=== PATIENT | female | born 1950 | race African-American/Black ===

== ENCOUNTER → 2020-10-16 | Outpatient (CLI) | payer MEDICARE, BC ==
[2014-10-02 10:38] VITALS: BP 158/94
[~2020-10-16] MED LIST: CETI10TA74 PO; METF500T16 PO; RAMI10CA53 PO; SIMV10TA PO
--- NOTE | 2020-10-18 10:10 | RAD ---
EXAM: Bilateral digital screening mammogram with tomosynthesis. HISTORY: 69-year-old female presents for screening mammography. TECHNIQUE: Full-field digital craniocaudal and mediolateral oblique 2D and 3D tomosynthesis images of both breasts are obtained for evaluation. Computer aided detection was applied. COMPARISON: 01/22/2017 BREAST PARENCHYMAL DENSITY: Level B - Scattered fibroglandular densities. FINDINGS: There is a cluster of microcalcifications with indistinct morphology within the 3:00 positi on of the right breast at mid depth. There are few additional benign-appearing calcifications within both breasts. There are stable areas of asymmetry and nodularity within both breasts. There is no new suspicious mass or architectural distortion. IMPRESSION: BI-RADS Category 0: Incomplete Additional imaging needed. RECOMMENDATION: Further evaluation with spot magnification views and a full field true lateral view o f the right breast to assess microcalcifications at the 3:00 position at mid depth is recommended. If your mammogram demonstrates that you have dense breast tissue, which could hide abnormalities, and if you have other risk factors for breast cancer that have been identified, you might benefit from s upplemental screening tests that may be suggested by your ordering physician. Dense breast tissue, i n and of itself, is a relatively common condition. This information is not provided to cause undue c oncern, but rather to raise your awareness and to promote discussion with your physician regarding th e presence of other risk factors, in addition to dense breast tissue. A report of your mammography re sults will be sent to you and your physician. You should contact your physician if you have any ques tions or concerns regarding this report. Mammography is a sensitive method for finding small breast cancers, but it does not detect them all a nd is not a substitute for careful clinical examination. A negative mammogram does not negate a clin ically suspicious finding and should not result in delay in biopsying a clinically suspicious abnorma lity. PQRS compliance statement - Patient information was entered into a reminder system with a target due date for the next mammogram. "Our facility is accredited by the [employer]." Electronically signed by: Loren Kramer MD (10/18/2020 10:08 AM) [id number]
== END ==
LOC: MAMMO 10:40
PROVIDERS: ATTEND Internal Medicine
DX: Z12.31 Encounter for screening mammogram for malignant neoplasm of breast (principal)
CPT/HCPCS: 77063; 77067

== ENCOUNTER → 2020-11-01 | Outpatient (CLI) | payer MEDICARE, BC ==
[2014-10-02 10:38] VITALS: BP 158/94
--- NOTE | 2020-11-01 14:43 | RAD ---
EXAM: Unilateral digital diagnostic mammography, right. HISTORY: Calcifications on mammographic screening. Additional imaging is requested. TECHNIQUE: Full field digital images were obtained in true lateral and magnification CC and ML projec tions. COMPARISON: 01/22/2017, 10/16/2020. COMPOSITION: B. There are scattered areas of fibroglandular density. FINDINGS: The calcifications of concern medially on the right appear predominantly rounded and benign . Stable correlates are suspected on prior studies. The parenchymal pattern is stable. BI-RADS CATEGORY: 2: Benign. RECOMMENDATION: 1. Resume bilateral screening mammography in one year. If mammography demonstrates dense breast tissue (heterogenously dense or extremely dense, category C or D), which could hide abnormalities, and if other risk factors for breast cancer have been identifi ed, supplemental screening tests that may be suggested by the ordering physician may be of benefit. D ense breast tissue, in and of itself, is a relatively common condition. Therefore, this information i s not provided to cause undue concern, but rather to raise awareness and to promote discussion with t he referring physician regarding the presence of other risk factors, in addition to dense breast tiss ue. The results of this mammography examination is provided to the patient and referring physician. T he patient should contact their referring physician if any questions or concerns exist regarding this report. PQRS compliance statement - Patient information was entered into a reminder system with a target due date for the next mammogram. "Our facility is accredited by the [employer]." Electronically signed by: Flavia Salamanca MD (11/01/2020 2:40 PM) [id number]
== END ==
LOC: MAMMO 13:54
PROVIDERS: ATTEND Internal Medicine
DX: R92.2 Inconclusive mammogram (principal)
CPT/HCPCS: 77065